=== PATIENT | male | born 1955 | race Caucasian/White ===

== ENCOUNTER 2016-08-30 06:56 | Day surgery (SDC) | payer BC ==
[2016-08-27 09:48] LABS: HEMATOCRIT 43.3 % (40.0-51.0); HEMOGLOBIN 14.4 g/dL (13.6-17.8)
[2016-08-27 10:00] LABS: BUN (BLOOD UREA NITROGEN) 17 MG/DL (6-23); CALCIUM, SERUM 9.2 MG/DL (8.5-10.4); CHLORIDE, SERUM 108 MMOL/L (96-112); CO2 (CARBON DIOXIDE) 28 MMOL/L (24-34); CREATININE 1.04 MG/DL (0.70-1.30); GFR AFRICAN AMERICAN 89 ML/MIN (>=60); GFR NON AFRICAN AMERICAN 77 ML/MIN (>=60); POTASSIUM, SERUM 4.2 MMOL/L (3.5-5.3); SODIUM, SERUM 143 MMOL/L (135-148)
[2016-08-27 10:01] LABS: GLUCOSE, SERUM 109 MG/DL (60-99)
--- NOTE | ~2016-08-30 | OP ---
Record Of Operation [facility] [address] [place]. [address] NAME: JUSTIN RUSS : 53 STATUS : [facility]#: [id number] AGE: 60 ADM/REG DATE : 08/30/16 MR#: [id number] REPORT SERV DATE: 08/30/16 DICTATED BY: ABIMAEL RODRIGUEZ JR. DATE: 08/30/16 REPORT STATUS : Draft TRANSCRIBED BY: MODBridger DATE: 08/30/16 DATE OF PROCEDURE: 08/30/2016 PREOPERATIVE DIAGNOSIS: Chalazion in the right upper lid. POSTOPERATIVE DIAGNOSIS: Chalazion in the right upper lid. PROCEDURE: Incision and drainage of chalazion in the right upper lid. ANESTHESIA: General. PRIMARY SURGEON: Abimael Rodriguez M.D. INDICATIONS: The patient is a developmentally-delayed 60-year-old white male with a chalazion in the right upper lid, treated conservatively with topical antibiotic, steroid ointment, lid scrubs, and hot compresses. The chalazion had increased in size approximately 4-5 mm causing ptosis and discomfort. Options were discussed with his caregivers including observation and incision and drainage. Risks and benefits were discussed with caregivers including but not limited to, bleeding, blindness, infection, reoperation, recurrence, scarring, irregularity of the lid, recurrence of the chalazion, loss of the eye, and blindness. The patient's caregivers voiced understanding and desired to have the procedure performed. DETAILS: The patient was identified in the holding area. The operative site was identified and marked. He was taken to the operating room. He was intubated by laryngeal mask airway. Next, the corneal protector was placed on the eye. The right eyelid was everted with a chalazion clamp. The chalazion was incised vertically. The material was removed. 0.12s and Westcotts were used to open the chalazion slightly. Battery powered cautery was then used to control the bleeding. The chalazion clip was removed. The lid was repositioned. The was removed. Pred-G ointment was placed on the eye. The eye had a Clear shield placed. He was extubated and returned to holding area in good condition. SPECIMENS: None. COMPLICATIONS: None. ESTIMATED BLOOD LOSS: Less than 1 mL. PB/MODL Abimael Rodriguez M.D. / [id number] Record Of Operation [address] [place]. [address] NAME: JUSTIN RUSS : 53 STATUS : [facility] [place] PAT#: [id number] AGE: 60 ADM/REG DATE : 08/30/16 MR#: [id number] REPORT SERV DATE: 08/30/16 DICTATED BY: ABIMAEL RODRIGUEZ JR. DATE: 08/30/16 REPORT STATUS : Draft TRANSCRIBED BY: KRISTOFER DATE: 08/30/16 CC: Iesha Javed TINA
[~2016-08-30 06:56] MED LIST: ALLEGRA180 PO; ASAB PO; CALAN SR180 MG PO; CITRACAL PO; DSS PO; FLEXALL TOP; FLOMAX4 PO; ISOPTINSR PO; KAPIDEX30 MG PO; LINZESS 145 M145 MCG PO; LOTRIMIN AF21 EX; LOTRISONE EX; MAX25 PO; NIACIN100 PO; PR25 PO; PRAVACHOL40 MG PO; PRIN10 PO; PROCTOSOL HC2.5 % RE; PROTONIX20 MG PO; SYN125 PO; ULTRAM50 PO; VITAMIN D400 UNI1 PO; ZANTAC300 MG PO; ZOCOR40 PO; [UNRECOGNIZED DRUG - OTHER] PO
== END 2016-08-30 10:54 | disposition home or self-care (01) ==
LOC: SDC 06:56
PROVIDERS: Ophthalmology
PROC: 089NXZZ Drainage of Right Upper Eyelid, External Approach (ICD-10-PCS; principal; 2016-08-30 09:30)
DX: H00.11 Chalazion right upper eyelid (principal); I10 Essential (primary) hypertension; K21.9 Gastro-esophageal reflux disease without esophagitis; F09 Unspecified mental disorder due to known physiological condition; H54.8 Legal blindness, as defined in USA; R62.50 Unspecified lack of expected normal physiological development in childhood; H50.10 Unspecified exotropia; H47.20 Unspecified optic atrophy; E78.00 Pure hypercholesterolemia, unspecified; M81.0 Age-related osteoporosis without current pathological fracture; K64.9 Unspecified hemorrhoids; Z86.010 Personal history of colon polyps; Z79.899 Other long term (current) drug therapy; Z79.82 Long term (current) use of aspirin; Z88.0 Allergy status to penicillin; Z88.1 Allergy status to other antibiotic agents; Z91.048 Other nonmedicinal substance allergy status
CPT/HCPCS: 80048; 85014; 85018; 93005; J2250; J2405; J3010